=== PATIENT | female | born 1955 | race Hispanic/Latino ===

== ENCOUNTER 2016-10-22 11:26 | Outpatient (CLI) | payer OTHER ==
--- NOTE | 2016-10-23 14:34 | Mammography Report ---
BILATERAL DIGITAL SCREENING MAMMOGRAM with CAD: 10/22/16 11:26:00 CLINICAL: Routine screening. COMPARISON:None available. She does not recall where she last had a mammogram. FINDINGS: The breasts are heterogeneously dense, which may obscured small masses. Bilateral asymmetries require additional imaging.No architectural distortion or suspicious calcifications. IMPRESSION: Bilateral asymmetry requiring further workup. BI-RADS CATEGORY: 0 -- Additional Imaging Evaluation Required RECOMMENDATION: Recall for bilateral spot compression views and bilateral breast ultrasound if needed. ACR BI-RADS MAMMOGRAPHIC CODES: 0 = Needs additional imaging evaluation; 1 = Negative; 2 = Benign; 3 = Probably benign; 4 = Suspicious; 5 = Malignant; 6 = Known biopsy-proven malignancy COMMENT: 1. Dense breast tissue, i.e., adenosis, fibrocystic changes, etc., may obscure an underlying neoplasm. 2. Approximately 10% of cancers are not detected with mammography. 3. A negative mammography report should not delay biopsy if a clinically suspicious mass is present. COMMENT: Patient follow-up letters are generated via our [employer] application.
== END 2016-10-22 11:27 | disposition home or self-care (01) ==
LOC: SPVWC 11:26
PROVIDERS: ATTEND Family Medicine
DX: Z12.31 Encounter for screening mammogram for malignant neoplasm of breast (principal)
CPT/HCPCS: 77067; G0202

== ENCOUNTER 2019-05-25 11:34 | Outpatient (CLI) | payer MEDICARE ==
--- NOTE | 2019-05-25 14:58 | Mammography Report ---
DIGITAL SCREENING MAMMOGRAM WITH CAD, 05/25/2019 INDICATION: Routine screening mammography. TECHNIQUE: Digital bilateral 2D mammography was obtained in the craniocaudal and mediolateral obliq ue projections. This examination was interpreted with the benefit of Computer-Aided Detection analysi s. COMPARISON: 05/03/2018 FINDINGS: Breast Density: The breasts are heterogeneously dense, which may obscure small masses. A right asymmetry on the CC view requires additional imaging. No architectural distortion or suspicio us calcifications of the right breast. Bilateral 9 calcifications. There is no evidence of dominant m ass, suspicious calcifications or architectural distortion in the left breast. IMPRESSION: Right asymmetry requiring additional imaging. Recommend recall for right ML, rolled CC, s pot compression CC views and right breast ultrasound if needed. Follow up recommendation: Special View: Spot Category 0: Incomplete. Needs additional imaging evaluation and/or prior mammograms for comparison. A "normal" or negative report should not discourage follow up or biopsy of a clinically significant f inding. A written summary of these findings will be mailed to the patient. The patient will be entered into a mammography reporting system which will generate a reminder letter for the patient's next appointmen t at the appropriate interval. The [employer] recommends yearly mammograms starting at age 40 and continuing as l navneet as a woman is in good health. Breast MRI is recommended for women with an approximate 20-25% or greater lifetime risk of breast cancer, including women with a strong family history of breast or ova marilyn cancer or who have been treated for Hodgkin's disease. Signer Name: Bebeto Nolen MD Signed: 05/25/2019 2:54 PM Workstation Name: [id number]
== END 2019-05-25 11:35 | disposition home or self-care (01) ==
LOC: SPVWC 11:34
PROVIDERS: ATTEND Internal Medicine
DX: Z12.31 Encounter for screening mammogram for malignant neoplasm of breast (principal)
CPT/HCPCS: 77067

== ENCOUNTER 2019-06-08 08:42 | Outpatient (CLI) | payer MEDICARE ==
--- NOTE | 2019-06-08 09:24 | Mammography Report ---
DIGITAL DIAGNOSTIC MAMMOGRAM WITH CAD, 06/08/2019 INDICATION: Recalled for asymmetry. -Abn. Mammo. TECHNIQUE: Digital right mammographic imaging was performed. This examination was interpreted with the benefit of Computer-aided Detection analysis. COMPARISON: 05/25/2019 FINDINGS: Breast Density: The breasts are heterogeneously dense, which may obscure small masses. Lateral, rolled CC and spot compression CC views were performed and are negative. Satisfactory efface ment of asymmetry. IMPRESSION: No mammographic evidence of malignancy. Follow up recommendation: Routine yearly BI-RADS Category 1: Negative. A "normal" or negative report should not discourage follow up or biopsy of a clinically significant f inding. A written summary of these findings will be mailed to the patient. The patient will be entered into a mammography reporting system which will generate a reminder letter for the patient's next appointmen t at the appropriate interval. According to the [employer], yearly mammograms are recommended starting at age 40 and continuing as long as a woman is in good health. Breast MRI is recommended for women with an aurelio roximately 20-25% or greater lifetime risk of breast cancer, including women with a strong family his tory of breast or ovarian cancer and women who have been treated for Hodgkin's disease. Signer Name: Bebeto Nolen MD Signed: 06/08/2019 9:20 AM Workstation Name: [id number]
== END 2019-06-08 08:43 | disposition home or self-care (01) ==
LOC: SPVWC 08:42
PROVIDERS: ATTEND Internal Medicine
DX: R92.8 Other abnormal and inconclusive findings on diagnostic imaging of breast (principal)

== ENCOUNTER 2020-06-27 12:43 | Outpatient (CLI) | payer MEDICARE ==
--- NOTE | 2020-06-27 15:20 | Mammography Report ---
DIGITAL SCREENING MAMMOGRAM WITH CAD, 06/27/2020 CLINICAL INFORMATION / INDICATION: Routine screening mammography. TECHNIQUE: Digital bilateral 2D mammography was obtained in the craniocaudal and mediolateral obliqu e projections. This examination was interpreted with the benefit of Computer-Aided Detection analysis . COMPARISON: 06/08/2019, 05/25/2019, 05/03/2018 FINDINGS: Breast Density: The breasts are heterogeneously dense, which may obscure small masses. No dominant mass, suspicious calcifications, or architectural distortion in either breast. Postsurgical scar is again noted in the right breast. IMPRESSION: No mammographic evidence of malignancy. Follow up recommendation: Routine yearly BI-RADS Category 2: Benign. A "normal" or negative report should not discourage follow up or biopsy of a clinically significant f inding. A written summary of these findings will be mailed to the patient. The patient will be entered into a mammography reporting system which will generate a reminder letter for the patient's next appointmen t at the appropriate interval. The [employer] recommends yearly mammograms starting at age 40 and continuing as l navneet as a woman is in good health. Breast MRI is recommended for women with an approximate 20-25% or greater lifetime risk of breast cancer, including women with a strong family history of breast or ova marilyn cancer or who have been treated for Hodgkin's disease. Signer Name: Judy Vicente MD Signed: 06/27/2020 3:15 PM Workstation Name: [id number]
== END 2020-06-27 12:44 | disposition home or self-care (01) ==
LOC: SPVWC 12:43
PROVIDERS: ATTEND Internal Medicine
DX: Z12.31 Encounter for screening mammogram for malignant neoplasm of breast (principal)
CPT/HCPCS: 77067

== ENCOUNTER 2021-08-13 11:18 | Outpatient (CLI) | payer MEDICARE ==
--- NOTE | 2021-08-13 14:12 | Mammography Report ---
DEXA BONE DENSITY SCAN INDICATION / CLINICAL INFORMATION: ASYMPTOMATIC MENOPAUSAL STATUS Z78.0. 66 years Female COMPARISON: 05/03/2018 LUMBAR SPINE, L1-L4: - Bone mineral density (BMD) = 1.162 g/cm2. - T-score = 1.0 Change (%) since most recent prior (if available): -1.1 RIGHT HIP, NECK : - Bone mineral density (BMD) = 0.686 g/cm2. - T-score = -1.5 Change (%) since most recent prior (if available): -3.3 IMPRESSION: 1. WHO Classification: Osteopenia. Fracture Risk: Increased. 2. 10-Year Fracture Risk (FRAX) = Major Osteoporotic Not reported.% / Hip: Not reported.% FRAX generally not reported for patients with normal or osteoporotic BMD, in ocu-nrciusk-ioogeqc may ents younger than age 50, or in patients undergoing pharmacotherapy BMD Reporting Guidelines (ISCD, 2015) BMD Reporting in Postmenopausal Women and in Men Age 50 and Older - T-scores are preferred. - The WHO densitometric classification is applicable. BMD Reporting in Females Prior to Menopause and in Males Younger Than Age 50 - Z-scores, not T-scores, are preferred. This is particularly important in children. - A Z-score of -2.0 or lower is defined as below the expected range for age, and a Z-score above -2.0 is within the expected range for age. - Osteoporosis cannot be diagnosed in men under age 50 on the basis of BMD alone. - The WHO diagnostic criteria may be applied to women in the menopausal transition. http://www.iscd.org/official-positions/0842-ykey-qciycqfq-positions-adult/ Signer Name: Jerzy Bolden MD Signed: 08/13/2021 2:07 PM Workstation Name: [id number]
--- NOTE | 2021-08-14 09:42 | Mammography Report ---
DIGITAL SCREENING MAMMOGRAM WITH CAD, 08/13/2021 CLINICAL INFORMATION / INDICATION: Routine screening TECHNIQUE: Digital bilateral 2D mammography was obtained in the craniocaudal and mediolateral obliqu e projections. This examination was interpreted with the benefit of Computer-Aided Detection analysis . COMPARISON: 06/27/2020 FINDINGS: Breast Density: The breasts are heterogeneously dense, which may obscure small masses. No dominant mass, suspicious calcifications, or architectural distortion in either breast. IMPRESSION: No mammographic evidence of malignancy. Follow up recommendation: Routine yearly BI-RADS Category 1: NEGATIVE A "normal" or negative report should not discourage follow up or biopsy of a clinically significant f inding. A written summary of these findings will be mailed to the patient. The patient will be entered into a mammography reporting system which will generate a reminder letter for the patient's next appointmen t at the appropriate interval. The [employer] recommends yearly mammograms starting at age 40 and continuing as l navneet as a woman is in good health. Breast MRI is recommended for women with an approximate 20-25% or greater lifetime risk of breast cancer, including women with a strong family history of breast or ova marilyn cancer or who have been treated for Hodgkin's disease. Signer Name: Jabari Sinha MD Signed: 08/14/2021 9:37 AM Workstation Name: [id number]
== END 2021-08-13 11:19 | disposition home or self-care (01) ==
LOC: SPVWC 11:18
PROVIDERS: ATTEND Internal Medicine
DX: Z12.31 Encounter for screening mammogram for malignant neoplasm of breast (principal); M85.88 Other specified disorders of bone density and structure, other site; Z78.0 Asymptomatic menopausal state
CPT/HCPCS: 77067; 77080